=== PATIENT | female | born 1990 | race Caucasian/White ===

== ENCOUNTER 2021-05-25 14:11 | Observation (INO) ==
[2021-05-25] MEDS ORDERED: NS 0.9% 1000 ml BAG 2,000 ML IV ONE (15:53)
[2021-05-25] MEDS ORDERED: cefTRIAXone 2 GM ADDV.VIAL 2 GM in NS 0.9% 100 ml BAG 100 ML IVPB ONE (15:57)
[2021-05-25 17:10] LABS: ABS Eosinophils 0.2 10^3/ul (0-0.6); ABS Lymphocytes 1.7 10^3/ul (1.0-4.8); ABS Monocytes 0.7 10^3/ul (0-0.8); Eosinophil % 1.4 %; Hematocrit 44 % (35-47); Hemoglobin 14.7 g/dL (12.0-16.0); Lymphocyte % 11.8 %; Mean Corpuscular HGB Conc 34 g/dL (31-36); Mean Corpuscular Hemoglobin 30 pg (27-31); Mean Corpuscular Volume 90 fL (80-97); Red Blood Count 4.87 10^6 /uL (3.70-4.87); Red Cell Distribution Width 13 % (10-15); White Blood Count 14.6 10^3/uL (3.5-10.8)
[2021-05-25 17:20] LABS: ALT 16 U/L (7-52); Albumin 5.1 g/dL (3.2-5.2); Albumin/Globulin Ratio 1.6 (1-3); Alkaline Phosphatase 47 U/L (35-149); Blood Urea Nitrogen 17 mg/dL (6-24); C Reactive Protein 2.62 mg/L (<8.01); CO2 Carbon Dioxide 23 mmol/L (22-32); Calcium 10.6 mg/dL (8.6-10.3); Chloride 102 mmol/L (101-111); EGFR Non-African American 78.5 (>60); Globulin 3.1 g/dL (2-4); Glucose 85 mg/dL (70-100); Lipase 32 U/L (11.0-82.0); Sodium 134 mmol/L (135-145); Total Protein 8.2 g/dL (6.4-8.9)
[2021-05-25 17:25] LABS: HCG Pregnancy < 0.60 mIU/mL
[2021-05-25 17:32] LABS: Anion Gap 9 mmol/L (2-11)
[2021-05-25 17:41] LABS: Urine Appearance Clear; Urine Bilirubin Negative (Negative); Urine Blood Negative (Negative); Urine Color Yellow; Urine Glucose Negative (Negative); Urine Ketones Negative (Negative); Urine Nitrite Negative (Negative); Urine Protein Negative (Negative); Urine Specific Gravity 1.005 (1.002-1.030); Urine Urobilinogen Negative (Negative)
[2021-05-25 17:45] LABS: Mean Platelet Volume 9.2 fL (7.4-10.4); Platelet Count 316 10^3/uL (150-450)
[2021-05-25] MEDS ORDERED: Ondansetron 4 mg VIAL 2 MG/ML 2 ml VIAL IV ONE (19:05)
[2021-05-25] MEDS ORDERED: Iohexol 300 (CONTRAST) 10 ML SDV IV ONE (21:08)
[2021-05-25] MEDS: NS 0.9% 1000 ml BAG 1,000 ML IV SCH (23:59)
[2021-05-26] MEDS: Lithium Carbonate ER 450mg TAB PO SCH ×2 (00:38→07:44)
[2021-05-26 05:47] LABS: ABS Eosinophils 0.2 10^3/ul (0-0.6); ABS Monocytes 0.7 10^3/ul (0-0.8); ABS Neutrophils 7.3 10^3/ul (1.5-7.7); Eosinophil % 1.7 %; Hematocrit 38 % (35-47); Hemoglobin 12.5 g/dL (12.0-16.0); Lymphocyte % 19.9 %; Mean Corpuscular HGB Conc 33 g/dL (31-36); Mean Corpuscular Hemoglobin 30 pg (27-31); Mean Corpuscular Volume 91 fL (80-97); Mean Platelet Volume 8.6 fL (7.4-10.4); Platelet Count 266 10^3/uL (150-450); Red Blood Count 4.22 10^6 /uL (3.70-4.87); Red Cell Distribution Width 14 % (10-15); White Blood Count 10.2 10^3/uL (3.5-10.8)
[2021-05-26 06:03] LABS: Albumin 3.8 g/dL (3.2-5.2); Albumin/Globulin Ratio 1.7 (1-3); Calcium 8.7 mg/dL (8.6-10.3); EGFR Non-African American 96.7 (>60); Globulin 2.2 g/dL (2-4); Indirect Bilirubin 1.7 mg/dL (0.3-1.0); Potassium 3.9 mmol/L (3.5-5.0); Total Bilirubin 1.9 mg/dL (0.2-1.0)
[2021-05-26] MEDS: NS 0.9% 1000 ml BAG 1,000 ML IV SCH (09:41)
[2021-05-26 11:07] LABS: Lithium 0.65 mmol/L (0.6-1.2)
[2021-05-26] MEDS ORDERED: Ondansetron 4 mg VIAL 2 MG/ML 2 ml VIAL IV PRN (14:10)
[2021-05-26] MEDS ORDERED: Ondansetron 4 mg VIAL 2 MG/ML 2 ml VIAL ONE (14:12)
[2021-05-26] MEDS ORDERED: oxyCODONE/Acetamin 5/325 mg TAB PO PRN (15:07)
[2021-05-26] MEDS ORDERED: Senna TAB 8.6 mg TAB PO PRN (15:09)
[2021-05-26] MEDS ORDERED: Magnesium Hydroxide LIQ 30 ML UDC PO PRN (15:09)
[2021-05-26] MEDS ORDERED: Polyethylene Glycol 3350 17 GM PACKET PO PRN (15:09)
[2021-05-26] MEDS ORDERED: Lidocaine PATCH 5% PATCH TRANSDERM SCH (16:00)
[2021-05-26] MEDS ORDERED: cefTRIAXone 1 gm/50 mL NS BAG 1 GM/50 ML BAG IVPB SCH (16:00)
[2021-05-26 17:18] VITALS: BP 131/80
[2021-05-26] MEDS ORDERED: Lidocaine Patch REMOVE PATCH PATCH OFF SCH (21:00)
== END 2021-05-26 18:16 | disposition home or self-care (01) ==
LOC: ED 14:11 → SSU 14:11
PROVIDERS: ADMIT Hospitalist; ATTEND Internal Medicine